=== PATIENT | male | born 1985 | race American Indian/Alaskan Native ===

== ENCOUNTER 2016-10-01 03:27 | Emergency (ER) | payer SELFPAY ==
[2016-10-01 03:36] VITALS: BP 127/92
--- NOTE | 2016-10-01 04:05 | XRay Report ---
FINAL REPORT PROCEDURE: XR HAND 3 LT TECHNIQUE: LEFT hand radiographs, AP, lateral, and oblique views. CPT 18883-CI HISTORY: MIDDLE FINGER PAIN COMPARISON: No prior studies are available for comparison. FINDINGS: Fracture (s) and/or Dislocation(s): None . Alignment: Normal . Joint space(s): Normal . Soft tissues: Normal . Bone mineralization: Normal . Foreign bodies: None . IMPRESSION: Normal Examination .
[2016-10-01] MEDS ORDERED: NORCO 5/325 PO ONE (05:43)
--- NOTE | 2016-10-01 05:43 | Emergency Department Report ---
HPI - General Chief Complaint: Extremity Injury, Upper Time Seen by Provider: 10/01/16 05:35 - HPI HPI: Patient is a 30-year-old male who presents to ED with left index finger pain times today. Patient states earlier today he got his hand stuck in between the door mother was closing. She states ever since then pain has been progressively worse throughout the day. Patient states some Motrin earlier with no relief. Patient states swelling has occurred around the index finger. She states he is able to move the finger with some pain Patient denies fever/chills/nausea/vomiting/abdominal pain/chest pain or any other problems. ED Past Medical Hx - Past Medical History Previous Medical History?: No - Surgical History Past Surgical History?: No - Social History Smoking Status: Current Every Day Smoker Substance Use Type: None - Medications Home Medications: Home Medications Medication Instructions Recorded Confirmed Last Taken Type Acetaminophen/Codeine [Tylenol #3] 1 tab PO Q6H PRN #14 tab 10/01/16 Unknown Rx Ibuprofen [Motrin] 800 mg PO Q8HR PRN #30 tablet 10/01/16 Unknown Rx ED Review of Systems ROS: Stated complaint: LT HAND MIDDLE FINGER INJURY Other details as noted in HPI Constitutional: denies: chills, fever Eyes: denies: eye pain, eye discharge, vision change ENT: denies: ear pain, throat pain Respiratory: denies: cough, shortness of breath, wheezing Cardiovascular: denies: chest pain, palpitations Endocrine: no symptoms reported Gastrointestinal: denies: abdominal pain, nausea, diarrhea Genitourinary: denies: urgency, dysuria Musculoskeletal: joint swelling, arthralgia. denies: back pain Skin: denies: rash, lesions Neurological: denies: headache, weakness, paresthesias Psychiatric: denies: anxiety, depression Hematological/Lymphatic: denies: easy bleeding, easy bruising Physical Exam - Physical Exam Vital Signs: Vital Signs 10/01/16 03:33 Temperature 98.6 F Pulse Rate 67 Respiratory 20 Rate Blood Pressure 127/92 O2 Sat by Pulse 100 Oximetry Physical Exam: GENERAL: Alert and oriented x3, no apparent distress, Normal Gait, atraumatic. HEAD: Head is normocephalic and a-traumatic. EYES: Extra ocular muscles are intact. Pupils are equal, round, and reactive to light and accommodation. NECK: Supple. Non edematous, No carotid bruits. No lymphadenopathy or thyromegaly. LUNGS: Symetrical with respiration, No wheezing, no rales or crackles, CTAB. HEART: S1, S2 present, regular rate and rhythm without murmur, no rubs, no gallops. ABDOMEN: No organomegaly was noted,Positive bowel sounds, soft, and non- distended. . Nontender to palpation on all Quadrants, NO CVA tenderness. EXTREMITIES/MUSCULOSKELETAL: No cyanosis, clubbing, rash, lesions or edema. Full ROM bilaterally. UE Pulses 2+ bilaterally. Left index finger at PIP joint mildly edematous. Full range of motion with some pain. NEUROLOGIC: No focal Deficit, Cranial nerves II through XII are grossly intact. No loss of sensation, PSYCHIATRIC: Mood is congruent with affect, denies suicidal or homicidal ideations. SKIN: Warm and dry, No lesions, No ulceration or induration present. ED Course Vital Signs 10/01/16 03:33 Temperature 98.6 F Pulse Rate 67 Respiratory 20 Rate Blood Pressure 127/92 O2 Sat by Pulse 100 Oximetry ED Medical Decision Making - Radiology Data Radiology results: report reviewed, image reviewed interpreted by me: FINAL REPORT PROCEDURE: XR HAND 3 LT TECHNIQUE: LEFT hand radiographs, AP, lateral, and oblique views. CPT 71812-RG HISTORY: MIDDLE FINGER PAIN COMPARISON: No prior studies are available for comparison. FINDINGS: Fracture (s) and/or Dislocation(s): None . Alignment: Normal . Joint space(s): Normal . Soft tissues: Normal . Bone mineralization: Normal . Foreign bodies: None . IMPRESSION: Normal Examination . Transcribed By: [facility] Dictated By: KIMBERLEE ROSSI MD Electronically Authenticated By: KIMEBRLEE ROSSI MD Signed Date/Time: 10/01/16 0503 - Medical Decision Making 3-year-old male presents with finger contusion. ED course: Patient received 2 tablets of [place]. Ice applied to finger. Patient put a finger immobilizer. X-ray of the hand shows no fractures no dislocation Discussed the patient to follow up with a keyboard specialist in 3-5 days. Discussed with patient to keep finger immobilized and straight for 24-48 hours. Discussed continued icing. Critical care attestation.: If time is entered above; I have spent that time in minutes in the direct care of this critically ill patient, excluding procedure time. ED Disposition Clinical Impression: Contusion of left middle finger without damage to nail Qualifiers: Encounter type: initial encounter Qualified Code(s): S60.032A - Contusion of left middle finger without damage to nail, initial encounter Disposition: DISCHARGED TO HOME OR SELFCARE Is pt being admited?: No Does the pt Need Aspirin: No Condition: Stable Instructions: Contusion in Adults (ED), Arthralgia (ED), Splint Care (ED), Jammed Finger (ED) Prescriptions: Acetaminophen/Codeine [Tylenol #3] 1 tab PO Q6H PRN #14 tab PRN Reason: Pain Ibuprofen [Motrin] 800 mg PO Q8HR PRN #30 tablet PRN Reason: Pain Referrals: PRIMARY CARE, [Primary Care Provider] - 3-5 Days [facility] [Outside] - 3-5 Days [facility] [Outside] - 3-5 Days [facility] [Outside] - 3-5 Days Forms: Work/School Release Form(ED) Time of Disposition: 05:54
== END 2016-10-01 06:43 | disposition home or self-care (01) ==
LOC: ED 03:27
DX: S60.032A Contusion of left middle finger without damage to nail, initial encounter (principal); F17.200 Nicotine dependence, unspecified, uncomplicated; W23.0XXA Caught, crushed, jammed, or pinched between moving objects, initial encounter; Y93.89 Activity, other specified; Y99.8 Other external cause status; Y92.89 Other specified places as the place of occurrence of the external cause
CPT/HCPCS: 99283

== ENCOUNTER 2019-08-27 14:41 | Emergency (ER) | payer SELFPAY ==
[2019-08-27 16:46] VITALS: BP 134/85
--- NOTE | 2019-08-27 20:13 | XRay Report ---
CHEST 2 VIEWS INDICATION: cough. COMPARISON: None. FINDINGS: Support devices: None. Heart: Within normal limits. Lungs/Pleura: No acute air space or interstitial disease. No significant pleural effusion. IMPRESSION: No acute findings. Signer Name: Obi Guzman MD Signed: 08/27/2019 8:08 PM Workstation Name: [id number]
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
== END 2019-08-27 20:55 | disposition home or self-care (01) ==
LOC: ED 14:41
DX: J40 Bronchitis, not specified as acute or chronic (principal); F12.10 Cannabis abuse, uncomplicated; Z87.891 Personal history of nicotine dependence; Z79.899 Other long term (current) drug therapy
CPT/HCPCS: 71046

== ENCOUNTER 2019-09-26 09:44 | Emergency (ER) | payer SELFPAY ==
[2019-09-26 10:07] VITALS: BP 121/80
[2019-09-26] MEDS ORDERED: IBUPROFEN 600 MG TAB PO ONE (14:18)
[2019-09-26] MEDS ORDERED: ACETAMINOPHEN 500 MG TAB PO ONE (14:18)
--- NOTE | 2019-09-26 14:23 | Emergency Department Report ---
ED General Adult HPI - General Chief complaint: Dental/Oral Stated complaint: RT SIDE TOOTHACHE/SWELLING Time Seen by Provider: 09/26/19 14:11 Source: patient, RN notes reviewed Mode of arrival: Ambulatory Limitations: No Limitations - History of Present Illness Initial comments: Patient is a pleasant 33-year-old gentleman who is not known to myself pre viously, presenting with a complaint of dental pain over tooth #32. Symptoms present for 7 to 10 days. He endorses cold and heat sensitivity. He is worried that he is going to develop an oral abscess, which he has developed in the past. He subjectively feels some preauricular swelling, and some right-sided submandibular swelling. There are no additional complaints. There is no stridor or dysphonia. -: Gradual Location: mouth Radiation: non-radiation Quality: aching Consistency: intermittent Improves with: other Worsens with: eating Associated Symptoms: denies other symptoms - Related Data Previous Rx's Medication Instructions Recorded Last Taken Type Ibuprofen [Motrin] 800 mg PO Q8HR PRN #30 tablet 10/01/16 Unknown Rx Albuterol INH(or & Nicu Only) 1 puff IH Q4-6H PRN #1 inha 08/27/19 Unknown Rx [ProAir HFA Inhaler] predniSONE [Deltasone] 50 mg PO QDAY #5 tab 08/27/19 Unknown Rx Acetaminophen [Non-Aspirin Extra 500 mg PO Q6HR PRN #30 tablet 09/26/19 Unknown Rx Strength] Amoxicillin [Trimox CAP] 500 mg PO Q8H #21 capsule 09/26/19 Unknown Rx Chlorhexidine Mouthwash [Peridex] 15 ml MM BID #1 bottle 09/26/19 Unknown Rx Ibuprofen [Motrin] 600 mg PO Q8H PRN #30 tablet 09/26/19 Unknown Rx Allergies Allergy/AdvReac Type Severity Reaction Status Date / Time No Known Allergies Allergy Verified 09/26/19 10:06 ED Review of Systems ROS: Stated complaint: RT SIDE TOOTHACHE/SWELLING Other details as noted in HPI Constitutional: see HPI Eyes: as per HPI ENT: dental pain Respiratory: see HPI Cardiovascular: as per HPI Endocrine: see HPI Gastrointestinal: as per HPI Genitourinary: as per HPI Musculoskeletal: as per HPI Skin: as per HPI Neurological: as per HPI Psychiatric: as per HPI Hematological/Lymphatic: as per HPI ED Past Medical Hx - Past Medical History Previous Medical History?: No - Surgical History Past Surgical History?: No - Social History Smoking Status: Former Smoker Substance Use Type: Marijuana - Medications Home Medications: Home Medications Medication Instructions Recorded Confirmed Last Taken Type Ibuprofen [Motrin] 800 mg PO Q8HR PRN #30 tablet 10/01/16 Unknown Rx Albuterol INH(or & Nicu Only) 1 puff IH Q4-6H PRN #1 inha 08/27/19 Unknown Rx [ProAir HFA Inhaler] predniSONE [Deltasone] 50 mg PO QDAY #5 tab 08/27/19 Unknown Rx Acetaminophen [Non-Aspirin Extra 500 mg PO Q6HR PRN #30 tablet 09/26/19 Unknown Rx Strength] Amoxicillin [Trimox CAP] 500 mg PO Q8H #21 capsule 09/26/19 Unknown Rx Chlorhexidine Mouthwash [Peridex] 15 ml MM BID #1 bottle 09/26/19 Unknown Rx Ibuprofen [Motrin] 600 mg PO Q8H PRN #30 tablet 09/26/19 Unknown Rx ED Physical Exam - General Limitations: No Limitations General appearance: alert, in no apparent distress - Head Head exam: Present: atraumatic, normocephalic - Eye Eye exam: Present: normal appearance, EOMI. Absent: nystagmus - ENT ENT exam: Present: normal exam, mucous membranes moist, normal external ear exam, other (There is no stridor or dysphonia. The patient is speaking in full sentences. There is tenderness to percussion over tooth #32. There are no abscesses noted. There is gingival irritation noted.) - Neck Neck exam: Present: normal inspection, full ROM. Absent: tenderness, meningismus - Respiratory Respiratory exam: Present: normal lung sounds bilaterally. Absent: respiratory distress - Cardiovascular Cardiovascular Exam: Present: normal rhythm, bradycardia, normal heart sounds. Absent: systolic murmur, diastolic murmur, rubs, gallop - GI/Abdominal GI/Abdominal exam: Present: soft. Absent: distended, tenderness, guarding, rebound, rigid, pulsatile mass - Rectal Rectal exam: Present: deferred - Extremities Exam Extremities exam: Present: normal inspection, full ROM, other (2+ pulses noted in the bilateral upper and lower extremities. There is no palpable cord. negative Homans sign. Muscular compartments are soft. The pelvis is stable.). Absent: calf tenderness - Back Exam Back exam: Present: normal inspection, full ROM. Absent: tenderness, CVA tenderness (R), CVA tenderness (L), paraspinal tenderness, vertebral tenderness - Neurological Exam Neurological exam: Present: alert, oriented X3, normal gait, other (There is no facial droop. The tongue is midline. Extraocular movements are intact bilaterally. There is 5 out of 5 strength in bilateral upper and lower extremities. Sensation is intact to light touch bilateral upper and lower extremities. There is a normal gait.). Absent: motor sensory deficit - Psychiatric Psychiatric exam: Present: normal affect, normal mood - Skin Skin exam: Present: warm, dry, intact, normal color. Absent: rash ED Course Vital Signs 09/26/19 10:05 Temperature 98.1 F Pulse Rate 56 L Respiratory 18 Rate Blood Pressure 121/80 O2 Sat by Pulse 100 Oximetry ED Medical Decision Making - Lab Data Vital Signs 09/26/19 10:05 Temperature 98.1 F Pulse Rate 56 L Respiratory 18 Rate Blood Pressure 121/80 O2 Sat by Pulse 100 Oximetry - Medical Decision Making Differential diagnosis, including but not limited to: Dental caries, dentalgia, gingivitis Assessment and plan: 33-year-old gentleman with dentalgia, and probable dental caries/gingivitis. He is afebrile with reassuring vital signs and protecting his airway at this time. His physical examination is unremarkable. He will be started empirically on appropriate pain medication, chlorhexidine, oral antibiotics, he was instructed on need to follow-up with an outpatient dentist. He does not appear to have an emergent medical condition present at this time. Critical care attestation.: If time is entered above; I have spent that time in minutes in the direct care of this critically ill patient, excluding procedure time. ED Disposition Clinical Impression: Dentalgia Disposition: DC-01 TO HOME OR SELFCARE Is pt being admited?: No Does the pt Need Aspirin: No Condition: Stable Additional Instructions: Take the pain medications, chlorhexidine as directed, antibiotics as directed. Please follow-up with the dentist as soon as possible. Return to the emergency room right away with new, worsened or different symptoms not present on the initial emergency room evaluation Search Results [facility] [address] In [facility] Open ? Closes 5PM [address] Open ? Closes 5PM [address] Open ? Closes 5PM [facility] (12) Dental clinic [address] Open ? Closes 4:30PM [facility] [place] 3.8 (21) Dentist [address] Open ? Closes 5PM [facility]: Chet Lewis DDS No reviews Dentist [address] Open ? Closes 5PM \ Referrals: [facility] [Outside] - 3-5 Days
== END 2019-09-26 14:40 | disposition home or self-care (01) ==
LOC: ED 09:44
DX: K08.89 Other specified disorders of teeth and supporting structures (principal)
CPT/HCPCS: 99282

== ENCOUNTER 2020-12-13 11:54 | Emergency (ER) | payer SELFPAY ==
[2020-12-13 12:05] VITALS: BP 122/86
--- NOTE | 2020-12-13 13:06 | Emergency Department Report ---
ED ENT HPI - General Chief complaint: Sore Throat Stated complaint: SORE THROAT Time Seen by Provider: 12/13/20 12:00 Source: patient Mode of arrival: Ambulatory Limitations: No Limitations - History of Present Illness Initial comments: This is a 34-year-old male nontoxic, well nourished in appearance, no acute signs of distress presents to the ED with c/o of sore throat x1 day. Patient describes sore throat as swallowing razer blades. Patient denies any fever, chills, headache, stiff neck, nausea, vomiting, chest pain, shortness of breath, numbness or tingling. Patient denies any drooling or hoarseness. Patient denies any allergies or significant past medical history. MD complaint: sore throat -: days(s) Location: throat Severity: mild Severity scale (0 -10): 8 Quality: aching Consistency: constant Improves with: none Worsens with: swallowing Associated Symptoms: pain with swallowing, sore throat. denies: fever, cough, gum swelling, toothache, tinnitus, hearing loss, discharge from ear, rhinorrhea - Related Data Previous Rx's Medication Instructions Recorded Last Taken Type Ibuprofen [Motrin] 800 mg PO Q8HR PRN #30 tablet 10/01/16 Unknown Rx Albuterol Mdi (or & Nicu Only) 1 puff IH Q4-6H PRN #1 inha 08/27/19 Unknown Rx [ProAir HFA Inhaler] predniSONE [Deltasone] 50 mg PO QDAY #5 tab 08/27/19 Unknown Rx Acetaminophen [Non-Aspirin Extra 500 mg PO Q6HR PRN #30 tablet 09/26/19 Unknown Rx Strength] Amoxicillin [Trimox CAP] 500 mg PO Q8H #21 capsule 09/26/19 Unknown Rx Chlorhexidine Mouthwash [Peridex] 15 ml MM BID #1 bottle 09/26/19 Unknown Rx Ibuprofen [Motrin] 600 mg PO Q8H PRN #30 tablet 09/26/19 Unknown Rx Naproxen 500 mg PO Q12H PRN #12 tablet 12/13/20 Unknown Rx Nystas/Diphen/Xyl Visc/Mylanta 15 ml MM Q6H PRN 5 Days #1 bottle 12/13/20 Unknown Rx [Magic Mouthwash] Allergies Allergy/AdvReac Type Severity Reaction Status Date / Time No Known Allergies Allergy Verified 09/26/19 10:06 ED Dental HPI - General Chief complaint: Sore Throat Stated complaint: SORE THROAT Time Seen by Provider: 12/13/20 12:00 Source: patient Mode of arrival: Ambulatory Limitations: No Limitations - Related Data Previous Rx's Medication Instructions Recorded Last Taken Type Ibuprofen [Motrin] 800 mg PO Q8HR PRN #30 tablet 10/01/16 Unknown Rx Albuterol Mdi (or & Nicu Only) 1 puff IH Q4-6H PRN #1 inha 08/27/19 Unknown Rx [ProAir HFA Inhaler] predniSONE [Deltasone] 50 mg PO QDAY #5 tab 08/27/19 Unknown Rx Acetaminophen [Non-Aspirin Extra 500 mg PO Q6HR PRN #30 tablet 09/26/19 Unknown Rx Strength] Amoxicillin [Trimox CAP] 500 mg PO Q8H #21 capsule 09/26/19 Unknown Rx Chlorhexidine Mouthwash [Peridex] 15 ml MM BID #1 bottle 09/26/19 Unknown Rx Ibuprofen [Motrin] 600 mg PO Q8H PRN #30 tablet 09/26/19 Unknown Rx Naproxen 500 mg PO Q12H PRN #12 tablet 12/13/20 Unknown Rx Nystas/Diphen/Xyl Visc/Mylanta 15 ml MM Q6H PRN 5 Days #1 bottle 12/13/20 Unknown Rx [Magic Mouthwash] Allergies Allergy/AdvReac Type Severity Reaction Status Date / Time No Known Allergies Allergy Verified 09/26/19 10:06 ED Review of Systems ROS: Stated complaint: SORE THROAT Other details as noted in HPI Constitutional: denies: chills, fever Eyes: denies: eye pain, eye discharge, vision change ENT: throat pain. denies: ear pain, dental pain, hearing loss, epistaxis, congestion Respiratory: denies: cough, shortness of breath, wheezing Cardiovascular: denies: chest pain, palpitations Endocrine: no symptoms reported Gastrointestinal: denies: abdominal pain, nausea, diarrhea Genitourinary: denies: urgency, dysuria Musculoskeletal: denies: back pain, joint swelling, arthralgia Skin: denies: rash, lesions Neurological: denies: headache, weakness, paresthesias Psychiatric: denies: anxiety, depression Hematological/Lymphatic: denies: easy bleeding, easy bruising ED Past Medical Hx - Past Medical History Previous Medical History?: No - Surgical History Past Surgical History?: No - Social History Smoking Status: Never Smoker Substance Use Type: Marijuana - Medications Home Medications: Home Medications Medication Instructions Recorded Confirmed Last Taken Type Ibuprofen [Motrin] 800 mg PO Q8HR PRN #30 tablet 10/01/16 Unknown Rx Albuterol Mdi (or & Nicu Only) 1 puff IH Q4-6H PRN #1 inha 08/27/19 Unknown Rx [ProAir HFA Inhaler] predniSONE [Deltasone] 50 mg PO QDAY #5 tab 08/27/19 Unknown Rx Acetaminophen [Non-Aspirin Extra 500 mg PO Q6HR PRN #30 tablet 09/26/19 Unknown Rx Strength] Amoxicillin [Trimox CAP] 500 mg PO Q8H #21 capsule 09/26/19 Unknown Rx Chlorhexidine Mouthwash [Peridex] 15 ml MM BID #1 bottle 09/26/19 Unknown Rx Ibuprofen [Motrin] 600 mg PO Q8H PRN #30 tablet 09/26/19 Unknown Rx Naproxen 500 mg PO Q12H PRN #12 tablet 12/13/20 Unknown Rx Nystas/Diphen/Xyl Visc/Mylanta 15 ml MM Q6H PRN 5 Days #1 bottle 12/13/20 Unknown Rx [Magic Mouthwash] ED Physical Exam - General Limitations: No Limitations General appearance: alert, in no apparent distress - Head Head exam: Present: atraumatic, normocephalic - Eye Eye exam: Present: normal appearance - Expanded ENT Exam Expanded Ear exam: Present: normal external inspection Mouth exam: Present: normal external inspection, tongue normal. Absent: drooling, trismus, muffled voice Teeth exam: Present: normal inspection Throat exam: Positive: tonsillar erythema, other (uvula midline. no swelling). Negative: tonsillomegaly, tonsillar exudate, R peritonsillar mass, L pe ritonsillar mass - Neck Neck exam: Present: normal inspection, full ROM. Absent: tenderness, meningismus, lymphadenopathy - Respiratory Respiratory exam: Absent: respiratory distress - Cardiovascular Cardiovascular Exam: Present: regular rate - Extremities Exam Extremities exam: Present: full ROM - Back Exam Back exam: Present: full ROM - Neurological Exam Neurological exam: Present: alert, oriented X3, normal gait - Psychiatric Psychiatric exam: Present: normal affect, normal mood - Skin Skin exam: Present: warm, dry, intact, normal color. Absent: rash ED Course Vital Signs 12/13/20 12:05 Temperature 98.3 F Pulse Rate 67 Respiratory 20 Rate Blood Pressure 122/86 O2 Sat by Pulse 98 Oximetry - Reevaluation(s) Reevaluation #1: 12/13/20 13:06 Patient is speaking in full sentences with no signs of distress noted. ED Medical Decision Making - Lab Data Lab Results 12/13/20 Range/Units Unknown Group A Strep Rapid Negative (Negative) - Medical Decision Making Patient stable and was examined by me. Vital signs are stable. Negative strep test. Exam is unremarkable and symptoms shows possibly a viral pharyngitis. Patient educated on [id number] remedies. Patient was instructed to follow-up with a primary care doctor in 3-5 days or if symptoms worsen and continue return to emergency room as soon as possible. At time of discharge, the patient does not seem toxic or ill in appearance. No acute signs of distress noted. Patient agrees to discharge treatment plan of care. No further questions noted by the patient. Critical care attestation.: If time is entered above; I have spent that time in minutes in the direct care of this critically ill patient, excluding procedure time. ED Disposition Clinical Impression: Viral pharyngitis Disposition: DC-01 TO HOME OR SELFCARE Is pt being admited?: No Does the pt Need Aspirin: No Condition: Stable Instructions: Viral Respiratory Infection, Slke-Mc-Mtez Additional Instructions: Follow-up with a primary care doctor in 3-5 days or if symptoms worsen and continue return to emergency room as soon as possible. Increased rest, hydration, and take Motrin/Tylenol as prescribed for fever episode. Prescriptions: Nystas/Diphen/Xyl Visc/Mylanta [Magic Mouthwash] 15 ml MM Q6H PRN 5 Days #1 bottle PRN Reason: Sore Throat Naproxen 500 mg PO Q12H PRN #12 tablet PRN Reason: Pain , Severe (7-10) Referrals: PRIMARY CAREMD [Primary Care Provider] - 3-5 Days TARYN SHARMA MD [Staff Physician] - 3-5 Days Forms: Work/School Release Form(ED) Time of Disposition: 13:50
== END 2020-12-13 14:10 | disposition home or self-care (01) ==
LOC: ED 11:54
DX: J02.9 Acute pharyngitis, unspecified (principal); B97.89 Other viral agents as the cause of diseases classified elsewhere; F12.90 Cannabis use, unspecified, uncomplicated; Z79.899 Other long term (current) drug therapy
CPT/HCPCS: 87116; 87430

== ENCOUNTER 2020-12-15 14:51 | Emergency (ER) | payer SELFPAY ==
[2020-12-15 16:23] VITALS: BP 133/84
[2020-12-15] MEDS ORDERED: ACETAMINOPHEN 500 MG TAB PO ONE (16:28)
[2020-12-15] MEDS ORDERED: IBUPROFEN 800 MG TAB PO ONE (16:28)
[2020-12-15] MEDS ORDERED: ACETAMINOPHEN 500 MG TAB ONE (16:29)
[2020-12-15] MEDS ORDERED: IBUPROFEN 800 MG TAB ONE (16:29)
--- NOTE | 2020-12-15 16:30 | Event Note ---
ED Screening Note Date of service: 12/15/20 Time: 16:30 ED Screening Note: 34-year-old male patient presents emergency department with complaints of sore throat starting 2 days ago. Patient states he was seen in the emergency department yesterday and diagnosed with viral pharyngitis. Rapid strep was negative. He was treated symptomatically with naproxen. Patient states the pain has worsened significantly today despite taking the medication as directed. The pain is now also radiating to his right ear and the right side of his neck. General: Awake, appropriately interactive. Tearful, uncomfortable. ENT: Airway is patent. Right side of the patient's soft palate appears asymmetrical as compared with the left. Uvula is non-edematous. Neck: Supple. Full range of motion intact. Cardiovascular: Normal peripheral perfusion. Pulmonary: No respiratory distress. Patient is speaking normally without use of accessory muscles. Skin: No apparent rashes or lesions. Neurological: No facial asymmetry. Speech is clear. Follows commands. Patient is alert and oriented. Musculoskeletal: Moves all four extremities spontaneously with normal range of motion. Psych: Cooperative. Appropriate mood and affect. I have greeted and performed a focused rapid initial assessment of this patient. A comprehensive ED assessment and evaluation of the patient, analysis of all test results, and completion of the medical decision-making process will be conducted by additional ED providers. This initial assessment/diagnostic orders/clinical plan/treatment(s) is/are subject to change based on patients health status, clinical progression and re-assessment. Further treatment and workup at subsequent clinical provider's discretion. Patient/guardian urged not to elope from the ED as their condition may be serious if not clinically assessed and managed.
[2020-12-15 16:49] LABS: Basophils % (Auto) 0.5 % (0.0-1.8); Eosinophils # (Auto) 0.1 K/mm3 (0.0-0.4); Eosinophils % (Auto) 0.6 % (0.0-4.3); Hematocrit 38.8 % (35.5-45.6); Hemoglobin 13.2 gm/dl (11.8-15.2); Lymphocytes # (Auto) 1.4 K/mm3 (1.2-5.4); Lymphocytes % (Auto) 15.6 % (13.4-35.0); Mean Corpuscular HGB Conc 34 % (32-34); Mean Corpuscular Volume 88 fl (84-94); Monocytes # (Auto) 0.8 K/mm3 (0.0-0.8); Monocytes % (Auto) 9.7 % (0.0-7.3); Platelet Count 146 K/mm3 (140-440)
[2020-12-15 17:13] LABS: Alanine Aminotransferase 11 units/L (7-56); Albumin 4.4 g/dL (3.9-5); BUN/Creatinine Ratio 10; Blood Urea Nitrogen 9 mg/dL (9-20); Calcium 9.2 mg/dL (8.4-10.2); Hemolysis Index 13
--- NOTE | 2020-12-15 18:04 | Emergency Department Report ---
ED ENT HPI - General Chief complaint: Sore Throat Stated complaint: SYMPTOMS SPREADING TO EAR AND NECK Time Seen by Provider: 12/15/20 16:42 Source: patient Mode of arrival: Ambulatory Limitations: No Limitations - History of Present Illness Initial comments: Patient is a 34-year-old male presents emergency room complaints of a sore throat that initially began a week ago. He states over the last couple days his symptoms have been worsening. He states that 2 days ago he was evaluated emergency department and had a strep swab performed which was negative, culture results are still pending. He states he was given a prescription for mouthwash and naproxen but his symptoms have not been improving and appear to be worsening. He states he now has some swelling in the back of the throat. He has pain with swallowing. He is still able to tolerate p.o. intake and his secretions. He denies any fever, nausea, vomiting, diarrhea, cough, shortness o f breath. He denies any recent travel or known sick contacts. No past medical history. No allergies medications. - Related Data Previous Rx's Medication Instructions Recorded Last Taken Type Ibuprofen [Motrin] 800 mg PO Q8HR PRN #30 tablet 10/01/16 Unknown Rx Albuterol Mdi (or & Nicu Only) 1 puff IH Q4-6H PRN #1 inha 08/27/19 Unknown Rx [ProAir HFA Inhaler] predniSONE [Deltasone] 50 mg PO QDAY #5 tab 08/27/19 Unknown Rx Acetaminophen [Non-Aspirin Extra 500 mg PO Q6HR PRN #30 tablet 09/26/19 Unknown Rx Strength] Amoxicillin [Trimox CAP] 500 mg PO Q8H #21 capsule 09/26/19 Unknown Rx Chlorhexidine Mouthwash [Peridex] 15 ml MM BID #1 bottle 09/26/19 Unknown Rx Ibuprofen [Motrin] 600 mg PO Q8H PRN #30 tablet 09/26/19 Unknown Rx Naproxen 500 mg PO Q12H PRN #12 tablet 12/13/20 Unknown Rx Nystas/Diphen/Xyl Visc/Mylanta 15 ml MM Q6H PRN 5 Days #1 bottle 12/13/20 Unknown Rx [Magic Mouthwash] Acetaminophen/Codeine [Tylenol 1 tab PO Q8H PRN #8 tab 12/14/20 Unknown Rx /Codeine # 3 tab] Clindamycin [Clindamycin CAP] 450 mg PO TID 7 Days #63 capsule 12/15/20 Unknown Rx Allergies Allergy/AdvReac Type Severity Reaction Status Date / Time No Known Allergies Allergy Verified 12/15/20 16:23 ED Dental HPI - General Chief complaint: Sore Throat Stated complaint: SYMPTOMS SPREADING TO EAR AND NECK Time Seen by Provider: 12/15/20 16:42 Source: patient Mode of arrival: Ambulatory Limitations: No Limitations - Related Data Previous Rx's Medication Instructions Recorded Last Taken Type Ibuprofen [Motrin] 800 mg PO Q8HR PRN #30 tablet 10/01/16 Unknown Rx Albuterol Mdi (or & Nicu Only) 1 puff IH Q4-6H PRN #1 inha 08/27/19 Unknown Rx [ProAir HFA Inhaler] predniSONE [Deltasone] 50 mg PO QDAY #5 tab 08/27/19 Unknown Rx Acetaminophen [Non-Aspirin Extra 500 mg PO Q6HR PRN #30 tablet 09/26/19 Unknown Rx Strength] Amoxicillin [Trimox CAP] 500 mg PO Q8H #21 capsule 09/26/19 Unknown Rx Chlorhexidine Mouthwash [Peridex] 15 ml MM BID #1 bottle 09/26/19 Unknown Rx Ibuprofen [Motrin] 600 mg PO Q8H PRN #30 tablet 09/26/19 Unknown Rx Naproxen 500 mg PO Q12H PRN #12 tablet 12/13/20 Unknown Rx Nystas/Diphen/Xyl Visc/Mylanta 15 ml MM Q6H PRN 5 Days #1 bottle 12/13/20 Unknown Rx [Magic Mouthwash] Acetaminophen/Codeine [Tylenol 1 tab PO Q8H PRN #8 tab 12/14/20 Unknown Rx /Codeine # 3 tab] Clindamycin [Clindamycin CAP] 450 mg PO TID 7 Days #63 capsule 12/15/20 Unknown Rx Allergies Allergy/AdvReac Type Severity Reaction Status Date / Time No Known Allergies Allergy Verified 12/15/20 16:23 ED Review of Systems ROS: Stated complaint: SYMPTOMS SPREADING TO EAR AND NECK Other details as noted in HPI Comment: All other systems reviewed and negative ED Past Medical Hx - Social History Smoking Status: Current Every Day Smoker Substance Use Type: None - Medications Home Medications: Home Medications Medication Instructions Recorded Confirmed Last Taken Type Ibuprofen [Motrin] 800 mg PO Q8HR PRN #30 tablet 10/01/16 Unknown Rx Albuterol Mdi (or & Nicu Only) 1 puff IH Q4-6H PRN #1 inha 08/27/19 Unknown Rx [ProAir HFA Inhaler] predniSONE [Deltasone] 50 mg PO QDAY #5 tab 08/27/19 Unknown Rx Acetaminophen [Non-Aspirin Extra 500 mg PO Q6HR PRN #30 tablet 09/26/19 Unknown Rx Strength] Amoxicillin [Trimox CAP] 500 mg PO Q8H #21 capsule 09/26/19 Unknown Rx Chlorhexidine Mouthwash [Peridex] 15 ml MM BID #1 bottle 09/26/19 Unknown Rx Ibuprofen [Motrin] 600 mg PO Q8H PRN #30 tablet 09/26/19 Unknown Rx Naproxen 500 mg PO Q12H PRN #12 tablet 12/13/20 Unknown Rx Nystas/Diphen/Xyl Visc/Mylanta 15 ml MM Q6H PRN 5 Days #1 bottle 12/13/20 Unknown Rx [Magic Mouthwash] Acetaminophen/Codeine [Tylenol 1 tab PO Q8H PRN #8 tab 12/14/20 Unknown Rx /Codeine # 3 tab] Clindamycin [Clindamycin CAP] 450 mg PO TID 7 Days #63 capsule 12/15/20 Unknown Rx ED Physical Exam - General Limitations: No Limitations General appearance: alert, in no apparent distress - Head Head exam: Present: atraumatic, normocephalic - Eye Eye exam: Present: normal appearance - ENT ENT exam: Present: mucous membranes moist, TM's normal bilaterally (canals bilaterally with wax present, no complete impaction, visualized portions of bilateral TMs are normal), other (there is moderate edema present to the right soft palate with erythema, no exudates, no tonsillar hypertrophy or exudates, uvula is mildine, no uvular edema or deviation, no trismus, no muffled voice, tolerating secretions, no tongue elevation, no submandibular edema) - Respiratory Respiratory exam: Present: normal lung sounds bilaterally. Absent: respiratory distress, wheezes, rales, rhonchi, stridor, chest wall tenderness, accessory muscle use, decreased breath sounds, prolonged expiratory - Cardiovascular Cardiovascular Exam: Present: regular rate, normal rhythm, normal heart sounds. Absent: systolic murmur, diastolic murmur, rubs, gallop - Neurological Exam Neurological exam: Present: alert, oriented X3 - Psychiatric Psychiatric exam: Present: normal affect, normal mood - Skin Skin exam: Present: warm, dry, intact ED Course Vital Signs 12/15/20 12/15/20 16:20 19:20 Temperature 98.6 F Pulse Rate 64 67 Respiratory 20 16 Rate Blood Pressure 133/84 O2 Sat by Pulse 99 99 Oximetry ED Medical Decision Making - Lab Data Result diagrams: 12/15/20 16:33 12/15/20 16:33 Lab Results 12/15/20 12/15/20 Range/Units 16:33 16:33 WBC 8.7 (4.5-11.0) K/mm3 RBC 4.40 (3.65-5.03) M/mm3 Hgb 13.2 (11.8-15.2) gm/dl Hct 38.8 (35.5-45.6) % MCV 88 (84-94) fl MCH 30 (28-32) pg MCHC 34 (32-34) % RDW 13.0 L (13.2-15.2) % Plt Count 146 (140-440) K/mm3 Lymph % (Auto) 15.6 (13.4-35.0) % [place] % (Auto) 9.7 H (0.0-7.3) % Eos % (Auto) 0.6 (0.0-4.3) % Baso % (Auto) 0.5 (0.0-1.8) % Lymph # (Auto) 1.4 (1.2-5.4) K/mm3 [place] # (Auto) 0.8 (0.0-0.8) K/mm3 Eos # (Auto) 0.1 (0.0-0.4) K/mm3 Baso # (Auto) 0.0 (0.0-0.1) K/mm3 Seg Neutrophils % 73.6 H (40.0-70.0) % Seg Neutrophils # 6.4 (1.8-7.7) K/mm3 Sodium 138 (137-145) mmol/L Potassium 4.1 (3.6-5.0) mmol/L Chloride 100.9 (98-107) mmol/L Carbon Dioxide 25 (22-30) mmol/L Anion Gap 16 mmol/L BUN 9 (9-20) mg/dL Creatinine 0.9 (0.8-1.3) mg/dL Estimated GFR > 60 ml/min BUN/Creatinine Ratio 10 % Glucose 85 (75-100) mg/dL Calcium 9.2 (8.4-10.2) mg/dL Total Bilirubin 0.50 (0.1-1.2) mg/dL AST 17 (5-40) units/L ALT 11 (7-56) units/L Alkaline Phosphatase 69 (35-129) units/L Total Protein 6.6 (6.3-8.2) g/dL Albumin 4.4 (3.9-5) g/dL Albumin/Globulin Ratio 2.0 % Vital Signs 12/15/20 12/15/20 16:20 19:20 Temperature 98.6 F Pulse Rate 64 67 Respiratory 20 16 Rate Blood Pressure 133/84 O2 Sat by Pulse 99 99 Oximetry - Medical Decision Making Patient is a 34-year-old male presents emergency room complaints of a sore throat that initially began a week ago. He states over the last couple days his symptoms have been worsening. He states that 2 days ago he was evaluated emergency department and had a strep swab performed which was negative, culture results are still pending. He states he was given a prescription for mouthwash and naproxen but his symptoms have not been improving and appear to be worsening. He states he now has some swelling in the back of the throat. He has pain with swallowing. He is still able to tolerate p.o. intake and his secretions. He denies any fever, nausea, vomiting, diarrhea, cough, shortness of breath. He denies any recent travel or known sick contacts. No past medical history. No allergies medications. Vitals are normal. On exam:there is moderate edema present to the right soft palate with erythema, no exudates, no tonsillar hypertrophy or exudates, uvula is mildine, no uvular edema or de viation, no trismus, no muffled voice, tolerating secretions, no tongue elevation, no submandibular edema, canals bilaterally with wax present, no complete impaction, visualized portions of bilateral TMs are normal. Labs are normal. No leukocytosis, no fever, no tachycardia. Patient is tolerating secretions and swallowing. Patient was given ibuprofen and Tylenol in triage and he states he feels much better. Patient given dexamethasone IM. Patient has no clinical signs of significant peritonsillar abscess at this time. Discussed the importance of ENT follow-up and discussed very strict return precautions in detail with patient. Patient given prescription for clindamycin. Advised patient Please take medication as prescribed to completion. Increase your water intake. Gargle with warm salt water. Follow-up with gear hobber operator. Return to emergency room immediately for any new or worsening symptoms. Critical care attestation.: If time is entered above; I have spent that time in minutes in the direct care of this critically ill patient, excluding procedure time. ED Disposition Clinical Impression: Soft palate edema Pharyngitis Qualifiers: Pharyngitis/tonsillitis etiology: unspecified etiology Qualified Code(s): J02.9 - Acute pharyngitis, unspecified Disposition: - TO HOME OR SELFCARE Is pt being admited?: No Does the pt Need Aspirin: No Condition: Stable Instructions: Pharyngitis, [id number] Additional Instructions: Please take medication as prescribed to completion. Increase your water intake. Gargle with warm salt water. Follow-up with gear hobber operator. Return to emergency room immediately for any new or worsening symptoms. Prescriptions: Clindamycin [Clindamycin CAP] 450 mg PO TID 7 Days #63 capsule Referrals: AMY VASQUEZ MD [Staff Physician] - 2-3 Days ENT [facility] [Provider Group] - 2-3 Days [facility]NT [facility], [facility] [Provider Group] - 2-3 Days Forms: Work/School Release Form(ED) Time of Disposition: 18:07 Print Language: PORTUGUESE
[2020-12-15] MEDS ORDERED: dexAMETHasone 20 MG/5 ML VIAL IM ONE (18:05)
== END 2020-12-15 19:20 | disposition home or self-care (01) ==
LOC: ED 14:51
DX: J02.9 Acute pharyngitis, unspecified (principal); K13.79 Other lesions of oral mucosa; F17.200 Nicotine dependence, unspecified, uncomplicated; Z79.899 Other long term (current) drug therapy
CPT/HCPCS: 36415; 80053; 85025; 96372; 99283; J1100